=== PATIENT | male | born 1965 | race Caucasian/White ===

== ENCOUNTER 2021-02-25 15:47 | Emergency (ER) | payer OTHER ==
[~2021-02-25] VITALS: Ht 172.7 cm; Wt 92.5 kg
[~2021-02-25 15:47] MED LIST: ACEBUTOLOL HCL200 MG PO; KETO10TA2 PO; MOTRIN800 MG PO; VALTREX1000 MG PO; ZOVIRAX15 GM TP
[2021-02-25] MEDS ORDERED: KETO10TA2 PO (18:35)
[2021-02-25] MEDS ORDERED: NORFLEX100MG PO (18:35)
== END 2021-02-25 18:37 | disposition home or self-care (01) ==
LOC: ER 15:47
DX: M54.5 Low back pain (principal)